=== PATIENT | male | born 1945 | race Caucasian/White ===

== ENCOUNTER 2017-11-21 04:07 | Emergency (ER) | payer OTHER, MEDICARE ==
[~2017-11-21] VITALS: Ht 177.8 cm; Wt 86.2 kg
[~2017-11-21 04:07] MED LIST: ASPIR 8181 MG PO; FOLIC ACID1 MG PO; HYZAAR 50-12.51 EACH PO; LEVOXYL125 MCG PO; PLAVIX 75 MG TA75 M1 PO; SIMVASTATIN40 MG PO
[2017-11-21] MEDS ORDERED: CRESTOR20 MG (04:24)
[2017-11-21 04:27] LABS: URINE BILIRUBIN NEGATIVE (Negative); URINE BLOOD 1+ (Negative); URINE CLARITY CLEAR; URINE COLOR YELLOW; URINE GLUCOSE-RANDOM NEGATIVE (Negative); URINE KETONES NEGATIVE (Negative); URINE LEUKOCYTES-REFLEX TRACE (Negative); URINE NITRITE-REFLEX NEGATIVE (Negative); URINE PROTEIN NEGATIVE (Negative); URINE SPECIFIC GRAVITY <= 1.005 (1.005-1.030)
[2017-11-21 04:41] LABS: BACTERIA-REFLEX >30 Many /HPF (None Seen); CASTS None Seen /LPF (None Seen); CRYSTALS None Seen /LPF (None Seen); MUCUS 4-6 Moderate strn/LPF (None Seen); SQUAMOUS 0-3 Few /LPF (0-3); URINE RBC 3-10 Few /HPF (0-2); WBC CLUMPS Moderate (None Seen)
[2017-11-21 04:57] LABS: ABSOLUTE BASOPHILS 0.1 thou/uL (0.0-0.2); ABSOLUTE LYMPHOCYTES 0.9 thou/uL (0.8-5.3); ABSOLUTE MONOCYTES 0.8 thou/uL (0.0-1.2); BASOPHILS 0.7 %; EOSINOPHILS 0.5 %; HEMATOCRIT 41.3 % (42.0-52.0); HEMOGLOBIN 14.2 gm/dL (14.0-18.0); LYMPHOCYTES 10.2 %; MCH 30.4 pg (26.0-34.0); MCHC 34.3 g/dL (28.0-37.0); MCV 88.6 fL (80.0-100.0); MONOCYTES 8.8 %; NUCLEATED RBCS 0 /100WBC; PLATELET COUNT* 174 thou/uL (150-400); POLYS 79.8 %; RBC 4.66 mil/uL (4.50-6.00); RDW-CV 13.7 % (10.5-14.5); WBC 8.8 thou/uL (4.0-11.0)
[2017-11-21 05:11] LABS: CALCIUM 8.6 mg/dL (8.5-10.1); CREATININE 1.3 mg/dL (0.6-1.3); POTASSIUM 3.7 mmol/L (3.5-5.1)
[2017-11-21] MEDS ORDERED: NEURONTIN 300300 M1 (05:11)
[2017-11-21 05:16] LABS: ALBUMIN 3.2 g/dL (3.4-5.0); TOTAL BILIRUBIN 1.4 mg/dL (<0.1-1.0); TOTAL PROTEIN 7.2 g/dL (6.4-8.2)
[2017-11-21] MEDS ORDERED: CIPROFLOXACIN500 M1 PO (06:20)
[2017-11-21 07:00] VITALS: BP 127/75
== END 2017-11-21 07:01 | disposition home or self-care (01) ==
LOC: M.ERS 04:07
PROVIDERS: Emergency Medicine
DX: N39.0 Urinary tract infection, site not specified (principal); I10 Essential (primary) hypertension; E78.00 Pure hypercholesterolemia, unspecified; G47.30 Sleep apnea, unspecified; Z88.1 Allergy status to other antibiotic agents; Z88.7 Allergy status to serum and vaccine; Z88.8 Allergy status to other drugs, medicaments and biological substances

== ENCOUNTER 2017-11-25 17:35 | Emergency (ER) | payer OTHER, MEDICARE ==
[~2017-11-25] VITALS: Ht 177.8 cm; Wt 86.2 kg
[~2017-11-25 17:35] MED LIST changes: +CIPROFLOXACIN500 M1 PO; +CRESTOR20 MG; +NEURONTIN 300300 M1
[2017-11-25 19:20] VITALS: BP 140/82
== END 2017-11-25 19:20 | disposition home or self-care (01) ==
LOC: M.ERS 17:35
DX: T83.098A Other mechanical complication of other urinary catheter, initial encounter (principal); I10 Essential (primary) hypertension; E78.00 Pure hypercholesterolemia, unspecified; G47.30 Sleep apnea, unspecified; Z88.7 Allergy status to serum and vaccine; Z88.1 Allergy status to other antibiotic agents; Z88.8 Allergy status to other drugs, medicaments and biological substances

== ENCOUNTER 2017-12-04 00:36 | Inpatient (IN) | payer OTHER, MEDICARE ==
[~2017-12-04] VITALS: Ht 177.8 cm; Wt 89.8 kg
[2017-12-04 00:41] VITALS: BP 136/73
[2017-12-04 01:04] LABS: ABSOLUTE BASOPHILS 0.1 thou/uL (0.0-0.2); ABSOLUTE EOSINOPHILS 0.1 thou/uL (0.0-0.7); ABSOLUTE LYMPHOCYTES 1.3 thou/uL (0.8-5.3); ABSOLUTE MONOCYTES 0.7 thou/uL (0.0-1.2); ABSOLUTE NEUTROPHILS 8.6 thou/uL (1.6-8.1); BASOPHILS 0.8 %; HEMATOCRIT 37.4 % (42.0-52.0); HEMOGLOBIN 12.8 gm/dL (14.0-18.0); LYMPHOCYTES 11.8 %; MCH 30.3 pg (26.0-34.0); MCHC 34.3 g/dL (28.0-37.0); MCV 88.3 fL (80.0-100.0); MONOCYTES 6.2 %; MPV 7.6 fl. (7.2-11.1); NUCLEATED RBCS 0 /100WBC; PLATELET COUNT* 249 thou/uL (150-400); POLYS 80.2 %; RBC 4.24 mil/uL (4.50-6.00); RDW-CV 13.8 % (10.5-14.5); WBC 10.8 thou/uL (4.0-11.0)
[2017-12-04 01:28] LABS: ANION GAP 8 mmol/L (7-16); BUN 20 mg/dL (7-18); CALCIUM 8.6 mg/dL (8.5-10.1); CHLORIDE 103 mmol/L (98-107); CO2 25 mmol/L (21-32); CREATININE 1.4 mg/dL (0.6-1.3); GLUCOSE 155 mg/dL (70-99); POTASSIUM 3.9 mmol/L (3.5-5.1); SODIUM 136 mmol/L (136-145)
[2017-12-04 01:36] LABS: ALBUMIN 2.8 g/dL (3.4-5.0); ALKALINE PHOSPHATASE 117 U/L (46-116); NT-PRO BRAIN NAT PEPTIDE 120 pg/mL (<300); SGOT 18 U/L (15-37); SGPT 27 U/L (30-65); TOTAL BILIRUBIN 0.8 mg/dL (<0.1-1.0); TOTAL PROTEIN 6.6 g/dL (6.4-8.2); TROPONIN-I LEVEL <0.06 ng/mL (<0.06)
[2017-12-04 01:43] LABS: URINE BILIRUBIN NEGATIVE (Negative); URINE BLOOD 2+ (Negative); URINE CLARITY CLEAR; URINE COLOR YELLOW; URINE GLUCOSE-RANDOM NEGATIVE (Negative); URINE KETONES NEGATIVE (Negative); URINE LEUKOCYTES-REFLEX NEGATIVE (Negative); URINE NITRITE-REFLEX NEGATIVE (Negative); URINE PROTEIN NEGATIVE (Negative); URINE SPECIFIC GRAVITY 1.025 (1.005-1.030); URINE UROBILINOGEN 0.2 E.U./dl (0.2-1.0)
[2017-12-04 02:26] LABS: BACTERIA-REFLEX 1-9 Few /HPF (None Seen); CASTS None Seen /LPF (None Seen); CRYSTALS None Seen /LPF (None Seen); MUCUS 0-3 Light strn/LPF (None Seen); SQUAMOUS 0-3 Few /LPF (0-3); URINE RBC 3-10 Few /HPF (0-2); URINE WBC-REFLEX 0-5 Rare /HPF (0-5)
[2017-12-04] MEDS ORDERED: SPIRIVA (02:36)
--- NOTE | 2017-12-04 03:00 | NUR ---
return from CT scan.
[2017-12-04 05:20] VITALS: BP 114/74
[2017-12-04 06:25] VITALS: BP 135/88
[2017-12-04 08:30] VITALS: BP 137/84
[2017-12-04 16:19] VITALS: BP 130/75
--- NOTE | 2017-12-04 17:56 | NUR ---
ASSUMED CARE OF PATIENT AT 0730. PATIENT ALERT AND ORIENTED X 4. VITAL SIGNS STABLE ON 2L O2 NASAL CANULA. HOWEVER, PATIENT DEVELOPED A TEMPERATURE OF 103.0 AT 1600. TYLENOL 650MG GIVEN. RECHECKED TEMP THIRTY MINUTES LATER. NO IMPROVEMENT. BLOOD CULTURES CAME BACK SHOWING GRAM-POSITIVE DIPLO COCCI IN CHAINS. PAGED DR. HAMPTON, WHO ORDERED VANCOMYCIN AND BLOOD CULTURES TO BE DRAWN. RECHECKED TEMPERATURE AGAIN WITH NO IMPROVEMENT. GAVE 600MG OF IBUPROFEN. IV PATENT WITH FLUIDS INFUSING. DENIES PAIN AND NAUSEA. HOURLY ROUNDS MAINTAINED THROUGHOUT SHIFT. CALL LIGHT WITHIN REACH. NURSING WILL CONTINUE TO MONITOR.
[2017-12-04 21:00] VITALS: BP 99/57
[2017-12-05] VITALS (8 sets, daily range): BP systolic 91–108; BP diastolic 54–69
[2017-12-05 04:54] LABS: HEMOGLOBIN 11.6 gm/dL (14.0-18.0); MCH 29.7 pg (26.0-34.0); MCHC 33.2 g/dL (28.0-37.0); MCV 89.7 fL (80.0-100.0); RBC 3.9 mil/uL (4.50-6.00); RDW-CV 13.9 % (10.5-14.5); WBC 11.5 thou/uL (4.0-11.0)
[2017-12-05 04:56] LABS: CALCIUM 7.6 mg/dL (8.5-10.1); CREATININE 1.3 mg/dL (0.6-1.3); MAGNESIUM 1.9 mg/dL (1.8-2.4); POTASSIUM 3.8 mmol/L (3.5-5.1)
--- NOTE | 2017-12-05 05:56 | NUR ---
ALERT AND ORIENTED X4. RESTING QUIETLY THROUGHOUT NIGHT. AFEBERILE THIS SHIFT. SWEATING ALOT AT BEGINNING OF SHIFT WHEN FEVER BROKE AND HAD TO HAVE 2 BED CHANGES. VOIDED X1 THIS SHIFT WITH POST VOID RESIDUAL OF 102ML. DENIES NEED FOR PAIN OR NAUSEA MEDICATIONS. CONTINUES ON IV ANTIBIODICS. IV FLUIDS INFUSING WITHOUT DIFFICULTY. CALL LIGHT WITHIN REACH.
--- NOTE | 2017-12-05 12:28 | NUR ---
CM SPOKE TO THE PATIENT TO DISCUSS HOME SITUATION, DISCHARGE PLANNING, AND O INFORM OF THE ROLE OF CM. PATIENT ALERT AND ORIENTED. PRIOR TO ADMISSION PATIENT INDEPENDENT AND ACTIVE. PATIENT DRIVES. PATIENT RESIDES AT HOME WITH SPOUSE. PATIENT USES A BIPAP AT HOME, BUT NO OTHER DME. PATIENT HAS NO HX OF HH OR SNF, AND PLANS TO RETURN HOME AT D/C. CM WILL REMAIN AVAILABLE TO ASSIST AND FOLLOW NEEDED.
[2017-12-05] MEDS ORDERED: NEURONTIN 300300 M1 PO (13:21)
--- NOTE | 2017-12-05 16:00 | NUR ---
NOTIFIED DR. HAMPTON OF BP 91/55, HR 114, TEMP 102.8, RR 24, SAT 92% ON 2L. ALSO INFORMED DR. HAMPTON OF SHORTNESS OF BREATH AND NEED OF BREATHING TREATMENTS. INCENTIVE SPIROMETER ORDERED. WILL CONTINUE TO MONITOR.
--- NOTE | 2017-12-05 16:37 | NUR ---
PATIENT REMAINS ALERT AND ORIENTED. REPORTED PAIN IN LEFT HIP THIS AFTERNOON. PATIENT HAD BEEN ON GABAPENTIN AT HOME, GABAPENTIN RESTARTED. T MAX 102.8. CURRENT TEMP 100.5 ORAL. BP BETTER AT 98/57, PULSE 108. PATIENT REMAINS ON THE 2L. INCENTIVE SPIROMETER ORDERED. BREATHING TREATMENTS SCHEDULE. DR. HAMPTON UPDATED WITH CHEST XRAY RESULTS AND CURRENT VITALS. NO NEW ORDERS. AT BEDSIDE. PATIENT ENCOURAGED TO SIT IN CHAIR THIS EVENING. CALL LIGHT WITHIN REACH. WILL CONTINUE TO MONITOR.
[2017-12-06 04:07] LABS: HEMATOCRIT 35.5 % (42.0-52.0); HEMOGLOBIN 11.8 gm/dL (14.0-18.0); MCH 29.8 pg (26.0-34.0); MCHC 33.2 g/dL (28.0-37.0); MCV 89.7 fL (80.0-100.0); MPV 8.1 fl. (7.2-11.1); RBC 3.96 mil/uL (4.50-6.00); RDW-CV 13.7 % (10.5-14.5); WBC 11.4 thou/uL (4.0-11.0)
[2017-12-06 04:24] LABS: CALCIUM 7.9 mg/dL (8.5-10.1); CREATININE 1.4 mg/dL (0.6-1.3)
--- NOTE | 2017-12-06 05:27 | NUR ---
PATIENT ALERT AND ORIENTED X 4. VITALS STABLE. HIGHEST TEMP DURING MY SHIFT WAS 99.1. TYLENOL GIVEN. IS ENCOURAGED. ON 2L OF OXYGEN. UP INDEPENDENTLY. SLEPT COMFORTABLY THROUGH THE NIGHT. HOURLY ROUNDS. NURSING WILL CONTINUE TO MONITOR.
--- NOTE | 2017-12-06 07:35 | CON ---
[address] [address] CONSULTATION Name: RAUL CUNHA Room: [address] IN M.R.#: [id number] Admission: 12/04/17 Attend Phys: Giovana Dugan Discharge: Date of : 47 Report #: [id number] THIS REPORT FOR: //name// CC: Uyen Atwood DATE OF SERVICE: 12/05/2017 INFECTIOUS DISEASE CONSULTATION ATTENDING PHYSICIAN: Dr. Scooter Atwood. REASON FOR EVALUATION: Gram-positive septicemia. HISTORY OF PRESENT ILLNESS: Chart reviewed, the patient examined. This is a 72-year-old with history of bladder lesions, also may well have prostatic hypertrophy. He has been evaluated several times recently in the Emergency Room, including 11/21/2017, 11/25/2017 and most recently , which he was admitted with complaints of urinary retention. He did have a Bradshaw catheter placed and culture at that time with growth of Enterococcus faecalis. He had been placed on ciprofloxacin and seemed to improve; however, had recurrent problems including fevers and was subsequently admitted. Catheter was taken out. Now with blood cultures positive for gram-positive diplococci. He had some shortness of breath. Chest x-ray was otherwise unremarkable; however, it did show some mild areas of infiltrate. CT abdomen and pelvis showed some thickening of the bladder, also some gallstones with gallbladder wall thickening. There is question of a chronic cholecystitis. Empirically started on vancomycin and dose of Levaquin as well. He was febrile at 103 last evening; this morning 98.8. He states he feels much better. ALLERGIES: LISTED TO CEPHALOSPORINS, BACTRIM AND TETANUS. CURRENT MEDICATIONS: Include albuterol, pantoprazole, aspirin, vancomycin, enoxaparin, atorvastatin, p.r.n. analgesics, antiemetics, levothyroxine, ibuprofen and folic acid. PAST MEDICAL HISTORY: Hypertension; high cholesterol; sleep apnea, utilizes CPAP at night; peripheral vascular disease with previous stenting and hemorrhoidectomy. SOCIAL HISTORY: Former smoker. No ethanol. FAMILY HISTORY: Noncontributory. REVIEW OF SYSTEMS: As above. Denies significant [place] [address] CONSULTATION Name: RAUL CUNHA Chago Room: [address]#: [id number] Admission: 12/04/17 Attend Phys: Giovana Dugan Discharge: Date of : 47 Report #: [id number] PHYSICAL EXAMINATION: GENERAL: He is in gaen-xy-pnchunwn distress. He is alert, cooperative. VITAL SIGNS: T-max 103, more recently 98.8; pulse 84; respirations 20 and blood pressure 108/54. SKIN: Warm. HEENT: Otherwise, unremarkable. NECK: Supple. LUNGS: Generally clear to auscultation. Somewhat diminished. HEART: Regular. I do not appreciate a murmur. ABDOMEN: Soft, nontender. There is no flank tenderness. GENITOURINARY: Deferred. RECTAL: Deferred. LABORATORY DATA: CBC: White count of 11.5, H and H 11.6 and 35.0 and platelets of 191,000. Prealbumin of 15.8. Sodium 141, potassium 3.8, chloride 108, bicarbonate is 25, BUN and creatinine 22 and 1.3 and glucose of 106. Blood culture with gram-positive diplococci in chains. Abdominal ultrasound as noted above. Urinalysis, 0-5 white cells. Sodium 136, potassium 3.9, chloride 103, bicarbonate is 25, BUN and creatinine 20 and 1.4. LFTs unremarkable. Albumin of 2.8. Total protein 6.6. Lactic acid 1.5. ASSESSMENT AND PLAN: Probable strep septicemia. I suspect complicated urinary tract source, as recent culture with Enterococcus. The gram stain is perhaps consistent with that, normally diplococcus we think of Streptococcus pneumoniae and some minor infiltrates, could be early pneumonitis as well. Did have changes in gallbladder, which can be more typical of Enterococcus isolation. We will continue the vancomycin for now. IT IS NOTABLE HE HAS SEVERAL ALLERGIES TO ANTIMICROBIALS. At this point, he appears to be somewhat improved clinically. We will await results. <ELECTRONICALLY SIGNED> By: Korey Richey MD 12/06/17 0735 [id number] Richey MD /nt
[2017-12-06 07:45] VITALS: BP 104/65
--- NOTE | 2017-12-06 16:07 | NUR ---
PATIENT REMAINS ALERT AND ORIENTED. DENIES PAIN. DENIES SOB THIS SHIFT. O2 AT 2L. SAT 98% THIS AM. UP AD HORACIO. SHOWERED THIS AFTERNOON. BOWEL MOVEMENT YESTERDAY. IV VANC BID. AFEBRILE SO FAR THIS SHIFT. UP TO CHAIR MOST OF DAY. AT BEDSIDE. AWAITING CULTURE SENSITIVITIES. CALL LIGHT WITHIN REACH. WILL CONTINUE TO MONITOR.
[2017-12-06 16:58] VITALS: BP 133/80
[2017-12-06 20:20] VITALS: BP 131/77
[2017-12-07 00:03] VITALS: BP 116/73
[2017-12-07 04:00] VITALS: BP 125/82
--- NOTE | 2017-12-07 04:55 | NUR ---
ASSUMED CARE OF PT AT START OF SHIFT, PT HAD TEMP OF 100.9, PT MEDICATED PRESCRIBED, TEMP DECREASE TO 98.2 AND REMAINED WNL THROUHGOUT THE NIGHT. PT RESTED WELL THROUGHOUT HOURLY ROUNDS, NO CONCENS VOICED. WILL CONTINUE WITH CURRENT PLAN OF CARE
--- NOTE | 2017-12-07 05:02 | NUR ---
SEE END OF SHIFT NOTE IN PROBLEM NOTE
[2017-12-07 07:45] VITALS: BP 116/62
--- NOTE | 2017-12-07 11:07 | PATH ---
[address] [address] PATHOLOGY RPT PROCEDURE Name: RAUL CUNHA Room: [address] IN [facility]#: [id number] Admission: 12/04/17 Date of : 47 Discharge: Report #: [id number] Path Case #: [id number] Note [facility] Accession Number: [id number] TESTS RESULT FLAG UNITS REF RANGE LAB Clinician Provided Cytology Information No. of containers..01 Other (Miscellaneous) Source: URINE DIAGNOSIS: 02 URINE NEGATIVE FOR HIGH-GRADE UROTHELIAL CARCINOMA (NHGUC). ATYPICAL UROTHELIAL CELLS ARE PRESENT, FAVOR A REACTIVE PROCESS. VIRAL CYTOPATHIC EFFECT (Polyomavirus) ARE IDENTIFIED. Pathologist ICD10: 02 R82.8, B34.9 Signed out by: 02 Srinivas Shelton MD, Pathologist NPI- [id number] Performed by: Chelsea Ortiz, Bench Worker Helper ([facility]) Gross description: 01 23ML, YELLOW, CLOUDY /LCS FLAG LEGEND: L-Low Normal,H-High Normal,LL-Alert Low,HH-Alert High <-Panic Low,>-Panic High,A-Abnormal,AA-Critical Abnormal Performed at: [address] [id number] Ron Espinoza MD, [address] [address] Srinivas Shelton MD, Performed at: [address] [place] [address] [id number] MD Ron Espinoza MD Phone: [phone]
--- NOTE | 2017-12-07 15:46 | NUR ---
AWAITING CXS. PT.WANTING TO GO HOME. DOESN'T UNDERSTAND WHY CXS ARE TAKING SO LONG. PER NURSING,EVEN THOUGH CULTURES AREN'T BACK,PT.NOT MEDICALLY STABLE FOR DISCHARGE. QUINTIN MASON/ADMIN.SPOKE WITH PT.
--- NOTE | 2017-12-07 15:59 | NUR ---
CHEST XRAY RESULTS GIVEN TO DR. HAMPTON
--- NOTE | 2017-12-07 16:06 | NUR ---
REPORT GIVEN TO YOUSUF GONZALEZ.
--- NOTE | 2017-12-07 16:39 | 2DMMODE ---
[place] [address] 2 D/M-MODE ECHOCARDIOGRAM Name: RAUL CUNHA Room: [address] IN [facility]#: [id number] Admission: 12/04/17 Attend Phys: Scooter Atwood Discharge: Date of : 47 Date of Service: 12/07/17 1639 Report #: [id number] THIS REPORT FOR: //name// APPROVED REPORT Study performed: 12/07/2017 15:19:59 EXAM: Comprehensive 2D, Doppler, and color-flow Echocardiogram Patient Location: In-Patient Room #: 114 Status: routine BSA: 2.08 HR: 91 bpm BP: 116/62 mmHg Rhythm: NSR Other Information Study Quality: Good Indications Sepsis Fever 2D Dimensions LVEF(%): 68.72 (>50%) IVSd: 9.67 (7-11mm) LVOT Diam: 19.27 (18-24mm) LVDd: 46.76 mm PWd: 10.27 (7-11mm) Ascending Ao: 30.19 (22-36mm) LVDs: 28.79 (25-40mm) Aortic Root: 32.58 mm Espinal's LVEF: 68.72 % Volumes Left Atrial Volume (Systole) LA ESV Index: 18.10 mL/m2 Aortic Valve AoV Peak Soren.: 1.58 m/s AO Peak Gr.: 10.02 mmHg LVOT Max P.05 mmHg AO Mean Gr.: 4.86 mmHg LVOT Mean P.05 mmHg LVOT Max V: 1.33 m/s AO V2 VTI: 27.22 cm LVOT Mean V: 0.78 m/s CLEMENTINE (VTI): 2.51 cm2 LVOT V1 VTI: 23.41 [place] [address] 2 D/M-MODE ECHOCARDIOGRAM Name: RAUL CUNHA Room: [address] IN ..#: [id number] Admission: 12/04/17 Attend Phys: Scooter Atwood Discharge: Date of : 47 Date of Service: 12/07/17 1639 Report #: [id number] E/A Ratio: 0.80 MV Decel. Time: 214.53 ms MV E Max Soren.: 1.34 m/s MV PHT: 62.21 ms MVA (PHT): 3.54 cm2 TDI E/Lateral E': 8.93 E/Medial E': 9.57 Medial E' Soren.: 0.14 m/s Lateral E' Soren.: 0.15 m/s Pulmonary Valve PV Peak Soren.: 0.88 m/s PV Peak Gr.: 3.12 mmHg Left Ventricle The left ventricle is normal size. There is normal LV segmental wall motion. There is normal left ventricular wall thickness. Left ventricular systolic function is normal. The left ventricular ejection fraction is within the normal range. LVEF is 65-70%. Grade I - abnormal relaxation pattern. Right Ventricle The right ventricle is normal size. The right ventricular systolic function is normal. Atria The left atrium size is normal. The right atrium size is normal. Aortic Valve The aortic valve is normal in structure. No aortic regurgitation is present. There is no aortic valvular stenosis. Mitral Valve The mitral valve is normal in structure. Mild mitral regurgitation. No evidence of mitral valve stenosis. Tricuspid Valve The tricuspid valve is normal in structure. Unable to assess PA pressure. Trace tricuspid regurgitation. Pulmonic Valve The pulmonary valve is normal in structure. There is no pulmonic valvular reg[place]itation[place] [address] 2 D/M-MODE ECHOCARDIOGRAM Name: RAUL CUNHA Room: [address] IN [facility]#: [id number] Admission: 12/04/17 Attend Phys: Scooter Atwood Discharge: Date of : 47 Date of Service: 12/07/17 1639 Report #: [id number] The aortic root is normal in size. IVC is normal in size and collapses with >50% inspiration Pericardium There is no pericardial effusion. <Conclusion> Left ventricular systolic function is normal. The left ventricular ejection fraction is within the normal range. <ELECTRONICALLY SIGNED> By: Fito Diop MD, FACC 12/07/171638 38 38 Fito Diop MD, FACC /INF
[2017-12-07 17:02] VITALS: BP 116/76
--- NOTE | 2017-12-07 17:23 | NUR ---
ASSUMED TRANSFER OF CARE AT 1600. AGREE WITH PREVIOUS NURSES ASSESSMENT. PATIENT REMAINS ALERT AND ORIENTED. VITALS REMAIN STABLE. RESTING COMFORTABLY IN BED AT THIS TIME. IS AT BEDSIDE. CALL LIGHT IN REACH, NURSING WILL CONTINUE TO MONITOR.
[2017-12-07 19:40] VITALS: BP 122/71
--- NOTE | 2017-12-08 04:53 | NUR ---
ASSUMED CARE AT START OF SHIFT PT RESTED WELL , TEMP 101.2 AT START OF SHIFT PT MEDICATED WITH TYLENOL , TEMP DOWN TO 98.3 . RESTED WELL THROUGHOUT HOURLY ROUNDS , DISCUSSED PLAN OF CARE VERBALIZED UNDERSTANDING AND AGREEABLE. WILL CONTINUE WITH CURRENT PLAN OF CARE.
--- NOTE | 2017-12-08 05:37 | NUR ---
AGREE WITH ALL CHARTING BY PIYUSH BARAHONA.
[2017-12-08 09:37] VITALS: BP 122/76
--- NOTE | 2017-12-08 14:00 | NUR ---
CULTURES STILL PENDING. CALLED IN PRESCRIPTION FOR ZYVOX 600MG PO BID X14 DAYS, PER , TO PT.'S PHARMACY [facility] IN [place]. COPAY IS $10.00 PT.INFORMED. LISA TO SPEAK WITH ABOUT POSSIBLE DISCHARGE. HAD PT.TAKE O2 OFF SO R.T.COULD DO RESTING AND EXERCISE SAT.TEST.
[2017-12-08] MEDS ORDERED: ZYVOX600 MG PO (14:02)
--- NOTE | 2017-12-08 15:00 | NUR ---
PER R.T.,PT.NEEDS O2 AT 2L/NC WITH ACTIVITY, AFTER DOING RESTING AND EXERCISE SAT TEST. PT.CHOSE [facility] FOR O2. NOTIFIED FOSTER/DEANNA AND FAXED HER FACE SHEET,ORDER,SATURATION REPORT AND PROGRESS NOTE FROM [phone]. SHE WILL DELIVER PORTABLE O2 TANK TO PT.S' ROOM 114. [facility]ER DID SAY THEY DO CONTRACT WITH PT.'S INSURANCE. CM DISCUSSED WITH PT.AND .
[2017-12-08 15:52] VITALS: BP 122/76
[2017-12-08 16:40] VITALS: BP 153/94
--- NOTE | 2017-12-08 18:40 | NUR ---
ASSUMED CARE OF PATIENT AFTER MORNING REPORT. ALERT AND ORIENTED X4. ASSESSMENT COMPLETED AND CHARTED. VSS ON ROOM AIR, 2 LITERS 02 AVAILABLE PATIENT GETS SOA UPON EXERTION. NO COMPLAINTS OF NAUSE, OR PAIN. DR KLINE CLEARED FOR DISCHARGE ON ZYVOX PENDING CULTURE RESULTS, FOLLOW UP OUTPATIENT. PATINT DISCHARGED AT 1830. ALL PERSONAL BELONGINGS, PRESCRIPTION, AND DISCHARGE INFORMATION SENT WITH PATIENT.
== END 2017-12-08 18:30 | disposition home or self-care (01) | DRG 871 ==
LOC: M.ERS 00:36 → M.ORTHSURG 04:31 → M.TBA-ER 04:31 → M.ORTHSURG 05:31
PROVIDERS: Emergency Medicine; Internal Medicine; ADMIT Internal Medicine
DX: A41.89 Other specified sepsis (principal); J96.01 Acute respiratory failure with hypoxia; J15.9 Unspecified bacterial pneumonia; J44.0 Chronic obstructive pulmonary disease with (acute) lower respiratory infection; N39.0 Urinary tract infection, site not specified; B95.2 Enterococcus as the cause of diseases classified elsewhere; E78.00 Pure hypercholesterolemia, unspecified; I10 Essential (primary) hypertension; I73.9 Peripheral vascular disease, unspecified; K80.20 Calculus of gallbladder without cholecystitis without obstruction; Z88.1 Allergy status to other antibiotic agents; Z88.2 Allergy status to sulfonamides; Z88.7 Allergy status to serum and vaccine; Z88.8 Allergy status to other drugs, medicaments and biological substances; Z79.82 Long term (current) use of aspirin; Z79.899 Other long term (current) drug therapy; Z98.62 Peripheral vascular angioplasty status; Z82.49 Family history of ischemic heart disease and other diseases of the circulatory system; Z87.891 Personal history of nicotine dependence